=== PATIENT | male | born 1975 | race Caucasian/White ===

== ENCOUNTER 2017-06-17 09:21 | Outpatient (CLI) | payer OTHER ==
[2017-06-17 11:11] LABS: Hematocrit 47.6 % (42.0-52.0); Mean Platelet Volume 8.7 fL (7.4-10.4); Red Blood Cell (RBC) Count 5.34 mill/uL (4.70-6.10); White Blood Cell (WBC) Count 8.8 thou/uL (4.8-10.8)
[2017-06-17 11:52] LABS: Anion Gap 13 mmol/L (10-20); BUN (Urea Nitrogen) 14 mg/dL (8.9-20.6); Calc. Creatinine Clearance 0 mL/min (70-130); Calcium 9.4 mg/dL (7.8-10.44); Carbon Dioxide 24 mmol/L (22-29); Chloride 105 mmol/L (98-107); Estimated GFR-MDRD 71
== END 2017-06-17 09:22 | disposition home or self-care (01) ==
LOC: LABBT 09:21
PROVIDERS: ATTEND Neurological Surgery
DX: Z01.812 Encounter for preprocedural laboratory examination (principal); M54.16 Radiculopathy, lumbar region
CPT/HCPCS: 80048; 85027; 93005; 93010

== ENCOUNTER 2017-06-30 05:55 | Day surgery (SDC) | payer OTHER ==
[2017-06-17 09:53] VITALS: BMI 37.9
[2017-06-30] MEDS ORDERED: CEFAZOLIN/Water 2 GM/20 ML SYRINGE ONE (06:07)
[2017-06-30] MEDS ORDERED: Famotidine/PF 20 mg/2ml Vial ONE (07:02)
[2017-06-30] MEDS ORDERED: Fentanyl 250 MCG/5 ML VIAL ONE (07:21)
[2017-06-30] MEDS ORDERED: Fentanyl 100 MCG/2 ML VIAL ONE (08:56)
--- NOTE | 2017-06-30 09:13 | OP ---
DATE OF PROCEDURE: 06/30/2017 SURGEON: Tej Gonzales M.D. SUPERVISOR CYTOLOGY: Karlos Kwok PROCEDURE: Right L5-S1 microdiskectomy. PROCEDURE IN DETAIL: The patient was brought into the operating room, intubated. He was rolled in t he prone position on gel-filled chest rolls. Incision made exposing right L5-S1 and our level was co nfirmed by x-ray. We performed a right L5-S1 hemilaminectomy, removed the yellow ligament and beneat h the right S1 nerve root found a large extruded disk herniation. This was removed in one large frag ment and additional disc debris was removed from the disk space. After complete decompression had be en secured, the wound was extensively irrigated, immaculate hemostasis was secured. Vancomycin powde r was applied and the wound was closed in anatomic layers.
[2017-06-30] MEDS ORDERED: Promethazine HCl 25 MG/ML VIAL ONE (09:58)
[2017-06-30] MEDS ORDERED: Succinylcholine Chloride 20 MG/ML 10 ml SYRINGE FS ONE (15:29)
[2017-06-30] MEDS ORDERED: Glycopyrrolate 0.2 MG/ML 5 ML SYRINGE ONE (15:29)
[2017-06-30] MEDS ORDERED: Ondansetron HCl/PF 4 MG/2 ML Vial ONE (15:29)
[2017-06-30] MEDS ORDERED: PHENYLEPHRINE-NS 100 MCG/ML 10 ML SYRINGE ONE (15:29)
[2017-06-30] MEDS ORDERED: Lidocaine 1% PF 5 ML VIAL ONE (15:29)
[2017-06-30] MEDS ORDERED: Propofol 200 MG/20 ML VIAL ONE (15:29)
[2017-06-30] MEDS ORDERED: Dexamethasone 20 MG/5 ML VIAL ONE (15:29)
== END 2017-06-30 11:23 | disposition home or self-care (01) ==
LOC: SDC 05:55
PROVIDERS: ATTEND Neurological Surgery
PROC: 01NB0ZZ Release Lumbar Nerve, Open Approach (ICD-10-PCS; principal; 2017-06-30)
PROC: 0ST20ZZ Resection of Lumbar Vertebral Disc, Open Approach (ICD-10-PCS; principal; 2017-06-30)
DX: M51.17 Intervertebral disc disorders with radiculopathy, lumbosacral region (principal); I10 Essential (primary) hypertension; E78.5 Hyperlipidemia, unspecified; G47.30 Sleep apnea, unspecified; F17.220 Nicotine dependence, chewing tobacco, uncomplicated; R73.03 Prediabetes; Z79.51 Long term (current) use of inhaled steroids; Z79.899 Other long term (current) drug therapy; Z99.89 Dependence on other enabling machines and devices; Z88.5 Allergy status to narcotic agent; Z98.890 Other specified postprocedural states
CPT/HCPCS: 76001; 96374; J0131; J1100; J2001; J2405; J2550; J2704; J3010; J3370; S0028

== ENCOUNTER 2017-11-03 07:40 | Outpatient (CLI) | payer OTHER | END 2017-11-03 07:41 | disposition home or self-care (01) | LOC: BICMRI 07:40 | PROVIDERS: ATTEND Otolaryngology Plastic Surgery within the Head & Neck | DX: H93.13 Tinnitus, bilateral (principal); H91.22 Sudden idiopathic hearing loss, left ear | CPT/HCPCS: 70553 ==

== ENCOUNTER 2021-04-15 07:31 | Outpatient (CLI) | payer OTHER, SELFPAY | END 2021-04-15 07:32 | disposition home or self-care (01) | LOC: TBSIIMAG 07:31 | PROVIDERS: ATTEND Family Medicine | DX: M47.26 Other spondylosis with radiculopathy, lumbar region (principal); M43.16 Spondylolisthesis, lumbar region; M48.061 Spinal stenosis, lumbar region without neurogenic claudication; M51.16 Intervertebral disc disorders with radiculopathy, lumbar region | CPT/HCPCS: 72148 ==